=== PATIENT | male | born 1960 | race Caucasian/White ===

== ENCOUNTER → 2024-05-31 06:57 | Outpatient (REF) | payer BC, SELFPAY | LOC: RAD 06:57 | PROVIDERS: ATTENDING PHYSICIAN Nurse Practitioner Family; FAMILY PHYSICIAN Physician Assistant | DX: K70.31 Alcoholic cirrhosis of liver with ascites (principal) | CPT/HCPCS: 76700 ==

== ENCOUNTER 2024-11-30 06:35 | Day surgery (SDC) | payer BC, SELFPAY ==
[2024-11-30 08:45] VITALS: BP 140/81
[2024-11-30 09:05] VITALS: BMI 24.8
[2024-11-30 09:28] VITALS: BP 118/72
[2024-11-30 09:30] VITALS: BP 120/70
[2024-11-30 09:45] VITALS: BP 147/86
== END 2024-11-30 10:03 | disposition home or self-care (01) ==
LOC: SDS 06:35
PROVIDERS: ATTENDING PHYSICIAN Internal Medicine Gastroenterology
PROC: 0DJ08ZZ Inspection of Upper Intestinal Tract, Via Natural or Artificial Opening Endoscopic (ICD-10-PCS; 2024-11-30)
DX: I85.00 Esophageal varices without bleeding (principal); K76.6 Portal hypertension; K31.89 Other diseases of stomach and duodenum
CPT/HCPCS: 43235